=== PATIENT | female | born 1990 | race Two or more races ===

== ENCOUNTER 2016-02-17 17:22 | Emergency (ER) | payer MEDICAID ==
[~2016-02-17] VITALS: Ht 165.1 cm; Wt 54.4 kg
[2016-02-17 20:29] VITALS: BP 101/68
== END 2016-02-17 21:11 | disposition home or self-care (01) ==
LOC: ER 17:27
DX: M54.5 Low back pain (principal); R10.9 Unspecified abdominal pain
CPT/HCPCS: 74176

== ENCOUNTER 2020-11-29 06:46 | Emergency (ER) | payer MEDICAID ==
[~2020-11-29] VITALS: Ht 165.1 cm; Wt 65.3 kg
[2020-11-29 07:12] VITALS: BP 112/91
== END 2020-11-29 07:44 | disposition home or self-care (01) ==
LOC: ER 06:46
DX: S10.86XA Insect bite of other specified part of neck, initial encounter (principal); S40.862A Insect bite (nonvenomous) of left upper arm, initial encounter; S40.861A Insect bite (nonvenomous) of right upper arm, initial encounter; S70.362A Insect bite (nonvenomous), left thigh, initial encounter; S70.361A Insect bite (nonvenomous), right thigh, initial encounter; S30.861A Insect bite (nonvenomous) of abdominal wall, initial encounter; W57.XXXA Bitten or stung by nonvenomous insect and other nonvenomous arthropods, initial encounter; Y93.89 Activity, other specified; Y92.89 Other specified places as the place of occurrence of the external cause; Y99.8 Other external cause status